=== PATIENT | male | born 1975 | race Caucasian/White ===

== ENCOUNTER 2017-05-15 00:10 | Emergency (ER) | payer OTHER ==
--- NOTE | ~2017-05-15 | ER ---
PATIENT'S NAME: RENNA WILLARD [facility] AGE: 42 Y [address] ROOM: [place] [id number] LOCATION: [facility] ADMIT DATE: 05/15/2017 ER/Outpatient Report DISCHARGE DATE: FAMILY PHYSICIAN: PHYSICIAN, NO ATTENDING PHYSICIAN: Glenn Marvin Time of Arrival: 0010 hours. Time of Evaluation: 0015 hours. CHIEF COMPLAINT: Chemical exposure to his eyes. HISTORY OF PRESENT ILLNESS: The patient is a 42-year-old male who presents to the emergency department today with a chief complaint of chemical exposure to his eyes. 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 He does have some blurry vision, redness, and irritated eyes. He did go home and take a shower. It occurred about 2 hours prior to arrival and irrigated his eyes out. He does not wear contacts or glasses. PAST MEDICAL HISTORY: None. PAST SURGICAL HISTORY: None. SOCIAL HISTORY: The patient denies any tobacco, alcohol, or illicit drug use. ALLERGIES: NO KNOWN DRUG ALLERGIES. MEDICATIONS: None. PRIMARY CARE DOCTOR: Is in [place]. REVIEW OF SYSTEMS: All systems are reviewed by myself and are negative with the exception of those discussed in the HPI and past medical history. PHYSICAL EXAMINATION: VITAL SIGNS: Weight 85.2 kg, blood pressure 150/92, pulse 80, respiratory rate 16, temperature 97.6, and oxygen saturation 97% on room air. Visual PATIENT'S NAME: RENAN WILLARD [facility] AGE: 42 Y [address] ROOM: [place] [address] LOCATION: [facility] ADMIT DATE: 05/15/2017 ER/Outpatient Report DISCHARGE DATE: FAMILY PHYSICIAN: PHYSICIAN, NO ATTENDING PHYSICIAN: Glenn Mavrin acuity: Right 20/20. Left 20/25. GENERAL: The patient is a 42-year-old male, appears as stated age, in no acute distress at this time. HEENT: Head normocephalic and atraumatic. Pupils are equal, round, and reactive to light and accommodation. Extraocular motions are intact. Conjunctivae are irritated and erythematous. NECK: Supple. There is no nuchal rigidity. CARDIOVASCULAR: Regular rate and rhythm. No murmurs, rubs, or gallops. LUNGS: Clear to auscultation bilaterally. No wheezes, rales, or rhonchi. ABDOMEN: Soft, nontender, and nondistended. No rebound, rigidity, or guarding. MUSCULOSKELETAL: The patient moves all 4 extremities. SKIN: Warm and dry. LABORATORY DATA AND X-RAYS: None. IMPRESSION: 1. Chemical exposure, bilateral eyes. 2. Initial visit. EMERGENCY DEPARTMENT COURSE: The patient was brought back to the examination room. Seen and evaluated by myself. History and physical performed as described above. The patient is immediately irrigated with 2 L of normal saline. The pH is 7. A slit-lamp exam is performed and evaluated the eyes. There is a conjunctival injection and irritation. There is no evidence of ulceration or abrasion noted. There are no cell and flare. Leonila sign is negative. I have discussed results of the exam with the patient. I have discussed with him that I will start him on erythromycin ophthalmic ointment. He is to follow up with the eye doctor in 3 to 5 days for evaluation. I have discussed return to care instructions including worsening symptoms or any other concerns, to return to the emergency department as soon as possible. The patient is agreeable. He is without further questions at this time. DISPOSITION: The patient discharged home in good condition. DO JUAN PRABHAKAR/elaina PATIENT'S NAME: RENAN WILLARD [facility] AGE: 42 Y [address] ROOM: [place], [place] [address] LOCATION: [facility] ADMIT DATE: 05/15/2017 ER/Outpatient Report DISCHARGE DATE: FAMILY PHYSICIAN: PHYSICIAN, NO ATTENDING PHYSICIAN: Glenn Marvin /[id number] d: 05/15/[id number] t: 05/15/17 1825, OUTPATIENT REPORT
== END 2017-05-15 01:42 | disposition disaster alternative care site (69) ==
LOC: GACC 00:10
DX: H53.8 Other visual disturbances (principal); H57.8 Other specified disorders of eye and adnexa; Z77.098 Contact with and (suspected) exposure to other hazardous, chiefly nonmedicinal, chemicals; Y92.511 Restaurant or cafe as the place of occurrence of the external cause; Y99.0 Civilian activity done for income or pay
CPT/HCPCS: J7030